=== PATIENT | female | born 1965 | race Caucasian/White ===

== ENCOUNTER 2016-11-30 09:56 | Emergency (ER) | payer BC ==
[~2016-11-30] VITALS: Ht 157.5 cm; Wt 65.5 kg
[2016-11-30 10:02] VITALS: Ht 157.5 cm; Wt 65.5 kg
[2016-11-30] MEDS ORDERED: IPRATROPIUM (NEB) 0.5 MG/2.5 ML AMP NEB STA (11:35)
[2016-11-30] MEDS ORDERED: ALBUTEROL 0.083% (NEB) 2.5 MG/3 ML AMP NEB STA (11:35)
--- NOTE | 2016-11-30 12:00 | RADRPT ---
PROCEDURE: XR Chest. CLINICAL INDICATION: Cough. TECHNIQUE: Single frontal view. COMPARISON: None. FINDINGS: The lungs are clear. The heart size is normal. There is no pleural effusion. There is no pneumothorax. IMPRESSION: 1. Normal chest radiograph. RPTAT: QQ .Yordan Cevallos MD, Date Time Electronically viewed and signed by .Yordan Cevallos MD, on 11/30/2016 12:00 .R/
--- NOTE | 2016-11-30 12:29 | ERD ---
ER Documentation Chief Complaint Date/Time DATE: 11/30/16 TIME: 12:29 Chief Complaint asthma x 2 days HPI This is a 51-year-old female who presents the emergency department today complaining of wheezing at night. States she has been told she has asthma in the past but has not had a problem for a long time. States she does not take regular medication for it. She has also had a cough that is worse at night states she has some shortness of breath. She thinks it is the change in weather. Denies any fevers or chills, vomiting. Denies use of cigarette smoke , oral contraceptive pills or prolonged travel. ROS All systems reviewed and are negative except as per history of present illness. Medications Home Meds Active Scripts Guaifenesin-Dextromethorphan* (Robitussin* DM) 100MG/10MG/5ML Syrup, 10 ML PO Q4H Y for COUGH for 5 Days, ML Prov:CELY HAJI PA-C 11/30/16 Albuterol Sulfate* (Proair HFA*) 8.5 Gm Hfa.aer.ad, 2 PUFF INH Q4, #1 INHALER Prov:CELY HAJI PA-C 11/30/16 Cetirizine Hcl* (Zyrtec*) 10 Mg Capsule, 10 MG PO DAILY, #14 TAB.CHEW Prov:CELY HAJI PA-C 11/30/16 Allergies Allergies: Coded Allergies: No Known Allergy (Unverified , 11/30/16) PMhx/Soc History of Surgery: No Anesthesia Reaction: No Hx Neurological Disorder: No Hx Respiratory Disorders: Yes (ASTHMA ) Hx Cardiac Disorders: No Hx Psychiatric Problems: No Hx Miscellaneous Medical Probl: No Hx Alcohol Use: No Hx Substance Use: No Hx Tobacco Use: No Smoking Status: Never smoker Physical Exam Vitals Vital Signs Date Time Temp Pulse Resp B/P Pulse Ox O2 Delivery O2 Flow Rate FiO2 11/30/16 11:54 85 18 96 21 11/30/16 10:02 98.0 98 18 121/86 97 Physical Exam Const: NAD Head: Atraumatic Eyes: Normal Conjunctiva ENT: Normal External Ears, Nose and Mouth. Neck: Full range of motion..~ No meningismus. Resp: Mild Faint wheezing bilaterally in all lung pastor Cardio: Regular rate and rhythm, no murmurs Abd: Soft, non tender, non distended. Normal bowel sounds Skin: No petechiae or rashes Back: No midline or flank tenderness Ext: No cyanosis, or edema Neur: Awake and alert Psych: Normal Mood and Affect Results 24 hrs Current Medications Medications (Trade) Dose Ordered Sig/Erna Route PRN Reason Start Time Stop Time Status Last Admin Dose Admin Albuterol (Proventil 0.083% (Neb)) 5 mg ONCE STAT NEB 11/30/16 11:35 11/30/16 11:36 DC 11/30/16 11:52 Ipratropium [place] (Atrovent 0.02% (Neb)) 0.5 mg ONCE STAT NEB 11/30/16 11:35 11/30/16 11:36 DC 11/30/16 11:52 DIAGNOSTIC IMAGING REPORT Patient: BRANDI FAITH : 1965 Age: 51 Sex: F MR #: [id number] DOS: 11/30/16 0000 Ordering MD: CELY HAJI PA-C Location: [facility] Room/Bed: PROCEDURE: XR Chest. CLINICAL INDICATION: Cough. TECHNIQUE: Single frontal view. COMPARISON: None. FINDINGS: The lungs are clear. The heart size is normal. There is no pleural effusion. There is no pneumothorax. IMPRESSION: 1. Normal chest radiograph. RPTAT: QQ .Yordan Cevallos MD, MD Date Time Electronically viewed and signed by .Yordan Cevallos MD, MD on 11/30/2016 12:00 .R/ CC: CELY HAJI PA-C Procedures/[facility] This is a 51-year-old female who presents the emergency department today complaining of wheezing and some shortness of breath and cough that is worse at night. Patient did indicate that she has a history of asthma but has not had a problem in a long time and has not taken any medications regularly. Had very mild faint wheezing on physical exam however patient was also complaining of some shortness of breath and therefore did obtain a chest x ray patient oxygen saturation is 97%. She is not tachycardic. Chest X-ray is negative. Low suspicion for pneumonia, PE, abscess, pleural effusion Was given a breathing treatment here in the emergency department she reported feeling significantly better. Patient symptoms at this time most consistent with acute asthma exacerbation. I have low suspicion for bronchitis at this time. Patient is afebrile and otherwise well-appearing. Patient was given a prescription for [place] Robitussin At this time the patient is stable for discharge and outpatient management. Patient should follow up with their PCP in the next 1-2 days. They may return to the emergency department sooner for any persistent or worsening of symptoms. Patient understood and agreed with the plan. Departure Diagnosis: Primary Impression: Acute asthma Condition: CELY Lott PA-C Nov 30, 2016 12:29
[2016-11-30] MEDS ORDERED: CETI10CA PO (12:40)
[2016-11-30] MEDS ORDERED: ALBU8.5H3 INH (12:40)
[2016-11-30] MEDS ORDERED: UDROBDM PO (12:41)
== END 2016-11-30 13:33 | disposition home or self-care (01) ==
LOC: FTE 09:56
DX: J45.901 Unspecified asthma with (acute) exacerbation (principal)
CPT/HCPCS: 71010; 94664; Z7502; Z7610